=== PATIENT | male | born 1965 | race Caucasian/White ===

== ENCOUNTER 2023-08-01 11:21 | Outpatient (CLI) | payer OTHER, SELFPAY ==
--- NOTE | ~2023-08-01 | PE_ITS ---
EXAMINATION: PET_PETPSMAST_PT DATE: 08/01/2023 13:50 INDICATION: Malignant neoplasm of the prostate TECHNIQUE: 9.551 mCi of pipflufolastat F-18 (18-F-DCFPyL) was administered i.v. Low dose computed to mography (CT) images were acquired from the base of the brain to the base of the brain to the proxima l thighs for attenuation correction and anatomic localization. Positron emission tomography (PET) paul ges were acquired in the same distribution beginning 88 minutes after injection. Images including fus ed PET/CT images were reconstructed in axial, coronal, and sagittal planes. Automated exposure contro l technique was employed. The dose-length product was 896.23mGy-cm. COMPARISON: None FINDINGS: Head/neck: Typical pattern of symmetric physiologic increased activity in the lacrimal, parotid and submandibula r glands as well as along the mucosa of the nasal and oral cavities, the emma-, naso- and hypopharynx, the glottis and esophagus. There is also a typical pattern of symmetric tiny foci of mild likely phy siologic neural ganglia uptake at a few bilateral cervical neural foramina. No pathologically enlarge d cervical lymphadenopathy or suspicious foci of increased uptake in the visualized head or neck. Chest: Respiratory motion and mild dependent atelectasis in the bilateral lower lobes. No suspicious pulmona ry nodules, or pneumonia, pulmonary edema or pleural effusion. Heart size is normal. No pericardial e ffusion. Thoracic aorta is normal in caliber. No pathologically enlarged or PSMA avid thoracic lympha denopathy. Abdomen/pelvis/proximal thighs: Physiologic renal accumulation and excretion of activity in the kidneys, bladder and along portions o f ureters. There is a small focus of mild uptake with maximal SUV of 6.6 at the left peripheral zone of the enlarged prostate. Slightly more intense small focus with maximum SUV of 14.40 central prostat e which given location is more likely to represent urine activity within the prostatic urethra. Addit ional small foci of urine activity along the more distal penile urethra and the glans. Normal degree and slightly heterogenous pattern of increased uptake throughout the liver and spleen without radiolo gic correlate or dominant PSMA avid lesion. The gallbladder, pancreas and bilateral adrenal glands ar e normal. Moderate uptake scattered throughout the bowels with typical duodenal and proximal jejunal predominance and without radiologic correlate, also likely physiologic. No other abnormal foci of inc reased uptake or pathologically enlarged lymphadenopathy in the abdomen, pelvis or proximal thighs. Musculoskeletal: No suspicious lytic, blastic or PSMA avid bone lesions to suggest osseous metastatic disease. IMPRESSION: 1. Small focus of mild uptake at the left peripheral zone of the prostate consistent with primary pro state cancer. No lesion suspicious for metastatic disease. Reviewed, dictated and finalized at location A. R [employer] IMPRESSION: 1. Small focus of mild uptake at the left peripheral zone of the prostate consi stent with primary prostate cancer. No lesion suspicious for metastatic disease .
== END 2023-08-01 11:22 | disposition home or self-care (01) ==
PROVIDERS: Visit Provider Urology
DX: C61 Malignant neoplasm of prostate (principal)
CPT/HCPCS: 78815; A9595